=== PATIENT | male | born 1935 | race Caucasian/White ===

== ENCOUNTER 2019-10-12 04:30 | Day surgery (SDC) | payer OTHER ==
[~2019-10-12 04:30] MED LIST: ASPIR 8181 MG PO; ATACAND16 MG PO; LEVOTHYROXINE25 MCG PO; STIOLTO RESPIMAT4 GM IH; ZOCOR PO; ZYRTEC10 M3 PO
== END 2019-10-12 11:35 | disposition home or self-care (01) ==
LOC: CIR.AMB 04:30
DX: N47.1 Phimosis (principal)